=== PATIENT | male | born 1990 | race Caucasian/White ===

== ENCOUNTER 2016-12-09 04:02 | Emergency (ER) | payer OTHER ==
[~2016-12-09] VITALS: Ht 170.2 cm; Wt 58.1 kg
[~2016-12-09 04:02] MED LIST: TESSALON PERLE100 MG PO; VENTOLIN HFA 1818 GM INH; ZPAK PO
[2016-12-09 04:05] VITALS: BP 129/84
[2016-12-09] MEDS ORDERED: TESSALON PERLE100 MG PO (04:34)
[2016-12-09] MEDS ORDERED: ZPAK PO (04:34)
== END 2016-12-09 04:45 | disposition home or self-care (01) ==
LOC: ER 04:02
DX: J40 Bronchitis, not specified as acute or chronic (principal); F17.210 Nicotine dependence, cigarettes, uncomplicated